=== PATIENT | female | born 1995 | race Caucasian/White ===

== ENCOUNTER 2016-11-26 17:49 | Emergency (ER) | payer SELFPAY ==
--- NOTE | 2016-11-26 18:47 | ER NURSING DOCUMENTATION ---
Nurse's Notes [facility] Name:Letty Robledo Age:21 yrs Sex:Female :1995 Arrival Date:11/26/2016 Time:17:49 Bed3 Private MD: Diagnosis:Intrauterine (IUP)-: 10 weeks 5 days Presentation: 11/26 17:52 Acuity: CALOS 3 [facility] [place] [facility] 18:01 Presenting complaint: Patient states: pt. thinks she is approx. 11 wks . Just sc1 arrived today from [place] and wants an ultra sound and a blood test to determine when she is due. Transition of care: Home. Notified ED Physician of patient's arrival and CC Dr. Flynn notified. 18:01 Method Of Arrival: Private Vehicle [facility] Triage Assessment: 18:17 General: Appears in no apparent distress, well developed, well nourished, well groomed, ma1 Behavior is cooperative, pleasant. Pain: Denies pain. 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 Keflex 500 mg oral cap 1 cap every 12 hours for Bacterial Urinary Tract Infection - PMHx: None; - PSHx: None; - Tetanus: unknown. - Ebola Screening: : Patient negative for fever greater than or equal to 101.5 degrees Fahrenheit, and additional compatible Ebola Virus Disease symptoms. Patient denies exposure to infectious person. Patient denies travel to an Ebola-affected area in the 21 days before illness onset. No symptoms or risks identified at this time. . - Immunization history: Flu Vaccine >1 year. - Social history: Smoking status: Patient uses tobacco products, current every day smoker. Patient/guardian denies using alcohol, street drugs, IV drugs, marijuana. Screenin:20 Infectious Disease Risk None. Abuse screen: Denies threats or abuse. Nutritional [facility] screening: No deficits noted. Vital Signs: 18:17 BP 106 / 70; Pulse 95; Resp 16; Temp 98.9; Pulse Ox 96% on R/A; ma1 ED Course: 17:50 Patient arrived in ED. ds 17:52 Deaynira Robledo RN is Primary Nurse. [facility] 17:52 Triage completed. ma1 18:18 Notified ED Physician of patient's arrival and chief complaint. Dr. Flynn notified. Arm sc1 band placed on Bed in low position Call Light in Reach Gowned HOB Elevated. 18:33 Jericho Flynn MD is Attending Physician. cd 18:34 Huan Arreaga MD is Referral Physician. cd Administered Medications: No medications were administered Point of Care Testing: Urine Dip: 18:19 pH: 7.0; ; Specific [place]: 1.020; Ketones: Negative; Glucose: Negative; Protein: sc1 Negative; Leukocytes: Trace; Nitrite: Negative ; Blood: Negative; Bilirubin: Negative ; Urobilinogen: Normal Outcome: 18:34 Discharge ordered by MD. cd 18:46 Discharged to home ambulatory. ma1 18:46 Condition: stable 18:46 Discharge instructions given to patient, Instructed on discharge instructions, follow up and referral plans. Demonstrated understanding of instructions. 18:47 Patient left the ED. ma1 11/27 10:33 Discharge F/U Call: Spoke with: patient. Have you made a f/u appointment? No. Reason [facility] for no f/u appt: Hasn't made the appointment yet. Overall Care on a scale of 1-10 with 10 being the best care, you rate our care as: the rating of 9. Further F/U necessary? None needed Signatures: Deyanira Robledo RN RN ma1 Diane Lundberg Reg Reg ds Daley, Chris, MD MD cd
--- NOTE | 2016-11-26 18:47 | ER PHYSICIAN DOCUMENTATION ---
Physician Documentation [facility] Name:Letty Robledo Age:21 yrs Sex:Female :1995 Arrival Date:11/26/2016 Time:17:49 Bed3 Private MD: Jericho Ortega Disposition: 11/26/16 18:34 Discharged to Home/Self Care. Impression: Intrauterine (IUP) - : 10 weeks 5 days. - Condition is Good. - Discharge Instructions: ABDOMINAL PAIN, Early . - Medical Reconciliation form form. - Follow up: Huan Arreaga MD; When: 4- 6 days; Reason: Recheck today's complaints, Continuance of care. - Problem is new. - Symptoms are unchanged. HPI: 11/26 18:00 This 21 yrs old Female presents to ER via Private Vehicle with complaints of cd 11 week / Wants US. 18:00 The patient presents to the emergency department with No other complaints. No cd care. Just moved here from [place]. The estimated gestational age is 11 weeks. course: care: none, Ultrasound: the patient has not had an ultrasound. Associated signs and symptoms: The patient has no apparent associated signs or symptoms. 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 Keflex 500 mg oral cap 1 cap every 12 hours for Bacterial Urinary Tract Infection - PMHx: None; - PSHx: None; - Tetanus: unknown. - Ebola Screening: : Patient negative for fever greater than or equal to 101.5 degrees Fahrenheit, and additional compatible Ebola Virus Disease symptoms. Patient denies exposure to infectious person. Patient denies travel to an Ebola-affected area in the 21 days before illness onset. No symptoms or risks identified at this time. . - Immunization history: Flu Vaccine >1 year. - Social history: Smoking status: Patient uses tobacco products, current every day smoker. Patient/guardian denies using alcohol, street drugs, IV drugs, marijuana. ROS: 18:10 Constitutional: Negative for chills, fever. cd 18:10 Abdomen/GI: Negative for abdominal pain, abdominal cramps. 18:10 : Negative for urinary symptoms, pelvic pain, flank pain, vaginal bleeding, vaginal discharge. 18:10 All other systems are negative. Exam: 18:10 Constitutional: The patient appears in no acute distress, alert, awake. cd 18:10 Abdomen/GI: Exam negative for acute changes, Palpation: abdomen is soft and non-tender. 18:10 : CVA tenderness, is absent, Gravid exam: Fundal height: consistent with gestational age, heart tones: 145 beats/min. Vital Signs: 18:17 BP 106 / 70; Pulse 95; Resp 16; Temp 98.9; Pulse Ox 96% on R/A; sc1 Procedures: 18:10 Ultrasound: Pelvic, obstetrical ultrasound performed. Views obtained: transabdominal cd uterus sagittal, Findings: intrauterine present, Impressions: An IUP with good FHT and movement. MDM: 18:10 Data reviewed: vital signs, nurses notes, old medical records, and as a result, I will cd discharge patient. Counseling: I had a detailed discussion with the patient and/or guardian regarding: the historical points, exam findings, and any diagnostic results supporting the discharge/admit diagnosis, the need for outpatient follow up, for a recheck, for a referral to a specialist, an OB/Gyne specialist, to return to the emergency department if symptoms worsen or persist or if there are any questions or concerns that arise at home. 18:33 Patient medically screened. cd 11/26 18:19 Order name: Urine Dip; Complete Time: 18:25 sc1 Dispensed Medications: No medications were administered Point of Care Testing: Urine Dip: 18:19 pH: 7.0; ; Specific [place]: 1.020; Ketones: Negative; Glucose: Negative; Protein: sc1 Negative; Leukocytes: Trace; Nitrite: Negative ; Blood: Negative; Bilirubin: Negative ; Urobilinogen: Normal Signatures: Deyanira Robledo, RN RN sc1 Jericho Flynn MD MD cd
== END 2016-11-26 18:47 | disposition home or self-care (01) ==
LOC: ER 17:49
DX: O99.331 Smoking (tobacco) complicating pregnancy, first trimester (principal)
CPT/HCPCS: 99282